=== PATIENT | female | born 1950 | race Caucasian/White ===

== ENCOUNTER → 2017-05-31 | Day surgery (SDC) | payer MEDICARE ==
--- NOTE | 2017-05-25 16:26 | MH ---
cc: ANA PAULA MAK DATE OF ADMISSION: 05/31/2017 PRINCIPAL DIAGNOSIS Right breast cancer. 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 This was initially noted on a screening mammogram January 19, which demonstrated a density in the right breast with a questionable density in the left breast. Bilateral breast ultrasound demonstrated a 6 mm density in the right breast which had increased in size since 2013. The mass was located at 11 o'clock 7 cm from the nipple. The left breast density appeared to be a cyst. Ultrasound-guided core biopsy was recommended in 2013 but the patient declined. The lesion is now considered BI-RADS 5 and ultrasound-guided core biopsy was performed on March 22. This demonstrated moderately differentiated invasive ductal carcinoma with lobular features suggesting a terminal ductal lobular origin. PAST MEDICAL HISTORY Medical problems include: 1. Osteoporosis. 2. Osteoarthritis. 3. Hypertension. 4. Gastroesophageal reflux. PAST SURGERIES 1. Tonsillectomy and adenoidectomy in 1962. 2. Appendectomy. 3. Total abdominal hysterectomy with bilateral salpingo-oophorectomy in 1991 for endometriosis. 4. Bilateral wrist surgeries. 5. Right heel surgery. 6. Left heel surgery. 7. Repair of a ventral hernia in 2008. 8. Right hip surgery in 2009. CURRENT MEDICATIONS 1. Simvastatin 40 mg daily. 2. Aspirin 81 mg daily. 3. Lisinopril 10 mg daily. 4. Propranolol 40 mg b.i.d. 5. Prilosec and 6. Imodium p.r.n. ALLERGIES She has an adverse drug reaction to MORPHINE AND CODEINE WHICH ARE ASSOCIATED WITH SEVERE MIGRAINE HEADACHES. IODINE CONTRAST IS ASSOCIATED WITH PRURITUS AND SWELLING. SHE HAS HAD A PREVIOUS ANAPHYLACTIC REACTION TO STEROIDS WHICH CAUSE RESPIRATORY DISTRESS, SWELLING AND URTICARIA. FAMILY HISTORY Was significant for a paternal aunt with ovary cancer in her 40s. A paternal uncle had prostate cancer. The patient has no siblings and her mother was an only child. REVIEW OF SYSTEMS 12-point review of systems was significant for gastroesophageal reflux as well as neck pain, joint pain and joint swelling. PHYSICAL EXAMINATION VITAL SIGNS: She was 5 feet 4 inches and weighed 174 pounds with a BMI of 30. Blood pressure was 129/78, temperature 98.8, heart rate 68, respirations 18. HEENT: Exam was unremarkable. NECK: The neck was supple with no adenopathy or thyromegaly. CHEST: Chest was clear throughout. CARDIAC: Exam was unremarkable. BREASTS: Exam revealed fibrocystic changes and asymmetry with the left breast being larger than the right. There were no palpable breast masses. ABDOMEN: Abdominal exam revealed a low midline scar with no masses or tenderness. IMPRESSION Ms. Gerber has clinical stage I right breast cancer with both mixed lobular and ductal features. She has opted for lumpectomy and intraoperative radiation therapy and has seen radiation oncology to coordinate this. She will also require a sentinel lymph node biopsy and she is agreeable to proceed. MD GEM Ren[place]/SAVANNA /3:16 PM /3:53 PM
[~2017-05-31] MED LIST: BUPIVACAINE HCL PF 0.5% 10 ML VIAL ONE; CITA20TA4 PO; ISOSULFAN BLUE 50 MG/5 ML VIAL SQ ONE; KETOROLAC TROMETHAMINE 30 MG/ML (IVP) VIAL IV PUSH ONE; LACTATED RINGER'S 1000 ML INJ 1,000 ML ONE; LISI-363 PO; MIDAZOLAM HCL 2 MG/2 ML VIAL ONE; OMEP20TA PO; ONDANSETRON HCL 4 MG/2 ML VIAL IV PUSH ONE; PROPOFOL 200 MG/20 ML AMP IV ONE; SIMV40TA PO; SODIUM CHLORIDE 0.9% INJ 10 ML ONE; ULTR50TA PO; ceFAZolin 2 GM PREMIX 50 ML ONE
--- NOTE | 2017-05-31 16:03 | TN ---
cc: JULIETA MAK M.D. DATE OF SURGERY 05/31/2017 PRINCIPAL DIAGNOSIS Right breast cancer. PROCEDURE PERFORMED Right breast needle-localized lumpectomy, intraoperative radiation therapy, and right axillary sentinel lymph node biopsy. SURGEON Julieta Mak MD ANESTHESIA General via LMA device. INDICATION The patient is a 67-year-old female with a clinical stage I small upper outer right breast cancer. She has opted for breast conservation and intraoperative radiation therapy and now presents for the procedure. FINDINGS AT SURGERY One sentinel lymph node was identified with a count of 1036. Specimen ultrasound did demonstrate an intact wire and the nodule was identified within the excised tissue as well as the clip. PROCEDURE PERFORMED After informed consent was obtained and site verification was performed, the patient was brought to the radiology suite where she underwent [place] tumoral radionuclide injection as well as needle localization of her mass at 11 o'clock 7 cm from the nipple. She was then brought to the major operating room where she underwent general anesthesia via LMA device. She was given a single dose of IV Ancef and sequential compression hose were placed. The right breast and arm were then prepped and draped in sterile fashion. 3 mL of half-strength Lymphazurin were injected in the subareolar right breast and a 5-minute massage was performed. A crescent incision was then created in the 11 o'clock location 7 cm from the nipple at the site of the lesion after anesthetizing with 0.5% Marcaine plain. Further sharp and electrocautery dissection was performed until the wire entry point through the skin was identified and secured with a hemostat. The wire was cut off at the skin with pin cutters and a 2-0 silk transfixion suture was placed at the wire entry point into the breast tissue. Sharp and electrocautery dissection was then performed circumferentially beyond the tip of the wire and the specimen was oriented with two sutures laterally, one short suture superiorly, and one long suture anteriorly. The specimen was sent to mammography with the findings as noted and was then sent for permanent pathologic evaluation. Inspection of the specimen did demonstrate that the anterior, posterior, and inferior margins appeared close and each of these was sharply reincised with a stitch on the new margin. Hemostasis was easily obtained with electrocautery and it was noted that there was a small lumpectomy cavity. The 3.5 cm applicator was used to size the cavity. A #1 Prolene suture was placed in the subcutaneous tissue approximately 1 cm beneath the skin in a running fashion and the applicator was again placed in the lumpectomy cavity. The suture was pulled taut but not tied. An ultrasound was used to document that the superior, medial, lateral, and inferior margins were 1.5 cm or greater between the skin and the applicator. The applicator was then removed and placed in a sterile drape and it was then secured to the [facility] intra beam machine. The applicator was again advanced into the lumpectomy cavity and the Prolene suture was secured. Ultrasound was again used to confirm 1.5 cm or greater circumferentially around the applicator up to the level of the skin. Moist laps and lead gasca were then placed over the applicator site and intraoperative radiation therapy was completed after 17 minutes. At the completion of the therapy, the lead gasca were removed and a Prolene stitch was cut. The applicator advanced easily out of the lumpectomy cavity and good hemostasis was noted. The wound was closed using a 3-0 Vicryl subcutaneous suture and 4-0 Monocryl subcuticular suture. Attention was then turned to the right axilla where an incision was anesthetized at the inferior aspect of the right axillary hairline. Both sharp and electrocautery dissection were performed until the clavipectoral fascia was divided. A Weitlaner retractor was placed in position and the level I axilla was explored. There was a palpable lymph node in the axillary tail of the breast and this was circumferentially dissected free from surrounding structures using the harmonic scalpel. This lymph node had a count of 1036. Some adjacent axillary jennifer tissue was circumferentially dissected free from surrounding structures using the harmonic scalpel but this had no count and was sent as a permanent specimen. Good hemostasis was noted in the axilla and the background count was 40. The wound was closed using interrupted 3-0 Vicryl subcutaneous sutures and a 4-0 Monocryl subcuticular suture. Steri-Strips and sterile dressing were applied to both wounds. The patient tolerated the procedure well with an estimated blood loss of 50 mL and she was extubated in the operating room and brought to recovery room in good condition. All sponge and needle counts were correct at the conclusion of the case. MD JOSE Ren[place] /3:03 PM /3:35 PM
--- NOTE | 2017-05-31 16:49 | RADONCOP ---
OPERATIVE REPORT Date: 05/31/2017 Patient Name: Chanel Gerber OPERATIVE REPORT DATE OF SURGERY: 05/31/2017 REFERRING PHYSICIAN: Julieta Heart PREOPERATIVE DIAGNOSIS: C50.411 - Malignant neoplasm of upper-outer quadrant of right female breast, Diagnosed 05/17/2017 (Active) POSTOPERATIVE DIAGNOSIS: C50.411 - Malignant neoplasm of upper-outer quadrant of right female breast, Diagnosed 05/17/2017 (Active) PROCEDURE: Intraoperative Radiation Therapy to the . SURGEON: Julieta Heart ANESTHESIA: General ESTIMATED BLOOD LOSS: Minimal INDICATIONS: Patient is a 67 year old female presenting with stage I breast cancer.. She has elected to receive targeted intraoperative radiation therapy to the . DESCRIPTION OF PROCEDURE: Patient was taken to the operating room and placed on the table in the supine position. Following induction of general anesthesia, the and arm were prepped and draped sterilely. Ultrasound was performed of the breast to document the location of the breast malignancy. The wound was prepared for intraoperative radiation therapy. Based on the diameter of the cavity, a 3.5 cm radiation applicator was selected for the delivery of intraoperative radiation therapy. The applicator was then sterilely mounted onto the Intrabeam Stand. Retracting sutures were placed within the skin to be used to retract the skin edges away from the radiation source. The 3.5 cm Radiation applicator was then sterilely inserted into the wound. The superficial purse-string suture was tied down. Ultrasound was performed of the breast to document conformity of the surgical margins and the distance from the applicator to the skin surface (> 1.5 cm). The retracting sutures were then secured and a moistened lap pad was placed on the skin surface, followed by an external radiation barrier. Intraoperative radiotherapy was then initiated by the Radiation Oncologist. Total treatment time was 17 minutes. Upon completion of the intraoperative radiotherapy treatment, the radiation applicator, purse-string sutures and retracting sutures were removed from the wound. The wound was once again irrigated. Hemostasis was confirmed. The patient was then turned back over to the surgeon, Julieta Heart in stable condition for completion of surgical procedure. Fredy Villalobos MD 05/31/2017 4:49:05 PM This report was verified and signed electronically
--- NOTE | 2017-05-31 16:51 | RADONCENDT ---
END OF TREATMENT SUMMARY Date: 05/31/2017 Patient Name: Chanel Gerber Date of : 1950 Age: 67 Sex: Female END OF TREATMENT SUMMARY PRIMARY REFERRING PHYSICIAN: Julieta Heart CC: Julieta Heart DIAGNOSIS: Primary C50.411 - Malignant neoplasm of upper-outer quadrant of right female breast, Diagnosed 05/17/2017 (Active) PRESCRIPTION AND TREATMENT: 2000 cGy to surface of applicator- TREATED PLAN FRACTIONS AND DATES: Course: One fraction delivered on 05/31/2017 TOLERANCE: Patient completed treatment without complications. FOLLOW UP PLAN: Patient to be seen in 2-4 weeks. Fredy Villalobos MD 05/31/2017 4:51:14 PM This report was verified and signed electronically
== END | disposition home or self-care (01) ==
LOC: ESDC 08:25
PROVIDERS: ATTEND Surgery
DX: C50.911 Malignant neoplasm of unspecified site of right female breast (principal)
CPT/HCPCS: 00400; 01610; 19125; 38525; 38792; 77290; 77300; 77334; 77370; 77424; 88305; 88307; J0690; J1885; J2250; J2405; J3010; J7120; Q9968; 77469